=== PATIENT | male | born 1995 | race Caucasian/White ===

== ENCOUNTER 2017-01-21 21:58 | Emergency (ER) | payer MEDICAID, OTHER ==
[~2017-01-21 21:58] MED LIST: ADDE10CA3 OR; MULTIVIT OR; RITA40CA OR
[2017-01-21] MEDS ORDERED: ONDANSETRON 4 MG ORAL DISINTEGRATING TAB (S0181) As Ordered ONE (23:33)
[2017-01-21] MEDS ORDERED: predniSONE 20 MG TAB As Ordered ONE (23:43)
[2017-01-21] MEDS ORDERED: AZITHROMYCIN 250 MG TAB As Ordered ONE (23:43)
--- NOTE | 2017-01-21 23:55 | EDDOCDS ---
Nurse's Notes [facility] Name: Per Brantley Age: 21 yrs Sex: Male : 1995 Arrival Date: 01/21/2017 Time: 21:58 Bed Triage 3 Private MD: Diagnosis: Acute tonsillitis;Nausea and vomiting Presentation: 01/21 22:01 Presenting complaint: Patient states: Nausea/vomiting, shakiness/weakness since this rs3 evening. denies diarrhea/abdominal pain. Adult Sepsis Screening: The patient does not have new or worsening altered mentation. Patient's respiratory rate is less than 22. Systolic blood pressure is greater than 100. Patient has a qSOFA score of 0- Negative Sepsis Screen. Suicide/Homicide risk assessment- the patient denies having any suicidal and/or homicidal ideations and does not present with any other emotional, behavioral or mental health complaints. Status: Patient is not a registered nurse surgical services or dependent. Transition of care: patient was not received from another setting of care. 22:01 Acuity: MATIAS Level 3 rs3 22:01 Method Of Arrival: Walkin/Carried/Asstd rs3 Triage Assessment: 22:04 General: Appears in no apparent distress. Pain: Denies pain. Pt Declines HIV testing. rs3 Historical: - Allergies: no known allergies; - Home Meds: 1. Adderall XR 20 mg Oral cp24 1 cap once daily - PMHx: ADHD; - PSHx: none; - Social history: Smoking status: Patient states was never smoker of tobacco. No barriers to communication noted, The patient speaks fluent Ivorian. - Family history: Not pertinent. - : The pt / caregiver states he / she is not on anticoagulants. Home medication list is obtained from the patient. - Exposure Risk Screening:: None identified. Screenin:51 Screening information is obtained from the patient. Fall risk: No risks identified. js15 Assistance ADL's: requires no assistance with activities of daily living. Abuse/DV Screen: The patient / caregiver reports he/she is: not in a situation that causes fear, pain or injury. Nutritional screening: No deficits noted. Advance Directives: There is no active DNR order. home support is adequate. Assessment: 23:51 General: Appears in no apparent distress, comfortable, Behavior is appropriate for age, js15 cooperative. Pain: Denies pain. Neurological: Level of Consciousness is awake, alert, obeys commands, Oriented to person, place, time. Respiratory: Airway is patent Respiratory effort is even, unlabored, Respiratory pattern is regular, symmetrical. GI: Abdomen is non- distended Abd is soft and non tender X 4 quads. Derm: Skin is normal. Vital Signs: 21:59 BP 162 / 74; Pulse 122; Resp 20; Temp 98.6(O); Pulse Ox 100% ; Weight 54.43 kg (R); lr2 Height 5 ft. 9 in. (175.26 cm) (R); Pain 0/10; 23:51 BP 146 / 86; Pulse 106; Resp 20; Temp 99.2(TE); Pulse Ox 97% on R/A; Pain 0/10; js15 21:59 Body Mass Index 17.72 (54.43 kg, 175.26 cm) lr2 Vitals: 21:59 Log In Time: January 21, 2017 at 21:58. lr2 23:38 Strep Screen is obtained and tested: Negative, a GATSNEG culture is ordered in [place] [address] and sent. ED Course: 21:59 Patient visited by Karen Garza. lr2 21:59 Patient moved to Waiting lr2 22:00 Patient moved to Pre RCE lr2 22:04 Triage Initiated rs3 22:05 Patient moved to Triage 3 rs3 22:44 [facility] Payment Agreement was scanned into [employer] and attached to record. kf3 23:18 [facility] ef1 23:18 Gerson Prince DO is Attending Physician. ef1 23:21 Patient visited by Elen Monteiro PA-C. ef1 23:39 GATS (NEGATIVE STREP SCREEN) Sent. js15 23:43 Harley Alvarenga MD is Referral Physician. ef1 23:51 The patient / caregiver is instructed regarding the plan of care and ED course. js15 23:51 No IV's were initiated during this patient's visit. No procedures done that require js15 assistance. Administered Medications: 23:35 Drug: Ondansetron ODT 4 mg [ondansetron 4 mg disintegrating tablet (1 tabs)] Route: PO; cz 23:47 Drug: predniSONE 60 mg [prednisone 20 mg tablet (3 tabs)] Route: PO; js15 23:47 Drug: azithromycin 500 mg [azithromycin 250 mg tablet (2 tabs)] Route: PO; js15 Order Results: There are currently no results for this order. Outcome: 23:43 Discharge ordered by Provider. ef1 23:51 Discharge Assessment: Patient awake, alert and oriented x 3. No cognitive and/or js15 functional deficits noted. Patient verbalized understanding of disposition instructions. patient administered narcotics - no. The following High Risk Discharge criteria are identified: None. Discharged to home ambulatory, with parent. Condition: stable. Discharge instructions given to patient, Instructed on discharge instructions, follow up and referral plans. medication usage, Demonstrated understanding of instructions, medications, Pt was receptive of discharge instructions/ teaching. Prescriptions given X 4. No special radiology studies were completed. Property sent home with patient. 23:54 Patient left the ED. js15 Signatures: Cory Arredondo, RN RN cz Yony Moon, Reg Reg kf3 Elen Monteiro, PA-C PA-C ef1 America Medel RN RN rs3 Citlaly Stewart RN RN js15 Karen Garza lr2 MTDD
--- NOTE | 2017-01-21 23:55 | EDDOCDS ---
Physician Documentation [facility] Name: Per Brantley Age: 21 yrs Sex: Male : 1995 Arrival Date: 01/21/2017 Time: 21:58 Bed Triage 3 Private MD: Disposition: 01/21/17 23:43 Discharged to Home/Self Care. Impression: Acute tonsillitis, Nausea and vomiting. - Condition is Stable. - Discharge Instructions: Nausea and Vomiting, Tonsillitis, [id number]. - Prescriptions for Ibuprofen 800 mg Oral Tablet - take 1 tablet by ORAL route every 8 hours As needed take with food; 30 tablet. Prednisone 20 mg Oral Tablet - take 3 tablet by ORAL route once daily for 5 days; 15 tablet. Reglan 10 mg Oral Tablet - take 1 tablet by ORAL route every 6 hours take 30 minutes before meals and at bedtime; 20 tablet. Zithromax 250 mg Oral Tablet - take 1 tablet by ORAL route once daily start tomorrow; 4 tablet. - Medication Reconciliation, Local Pharmacy Hours form. - Follow up: Harley Alvarenga; When: 1 - 2 days; Reason: Recheck today's complaints, Continuance of care. Follow up: Emergency Department; Reason: Worsening of conditions. - Problem is new. - Symptoms have improved. Historical: - Allergies: no known allergies; - Home Meds: 1. Adderall XR 20 mg Oral cp24 1 cap once daily - PMHx: ADHD; - PSHx: none; - Social history: Smoking status: Patient states was never smoker of tobacco. No barriers to communication noted, The patient speaks fluent Solomon Islander. - Family history: Not pertinent. - : The pt / caregiver states he / she is not on anticoagulants. Home medication list is obtained from the patient. - Exposure Risk Screening:: None identified. Vital Signs: 01/21 21:59 BP 162 / 74; Pulse 122; Resp 20; Temp 98.6(O); Pulse Ox 100% ; Weight 54.43 kg / 120 lr2 lbs (R); Height 5 ft. 9 in. (175.26 cm) (R); Pain 0/10; 23:51 BP 146 / 86; Pulse 106; Resp 20; Temp 99.2(TE); Pulse Ox 97% on R/A; Pain 0/10; js15 21:59 Body Mass Index 17.72 (54.43 kg, 175.26 cm) lr2 MDM: 22:44 [facility] Payment Agreement was scanned into [employer] and attached to record. kf3 23:31 Strep Screen, Nursing ordered. ef1 23:31 Ondansetron ODT Oral Disintegrating Tablet 4 mg PO once ordered. ef1 23:32 Financial registration complete. hs2 23:38 GATS (NEGATIVE STREP SCREEN) Ordered. EDMS 23:40 predniSONE 60 mg PO once; administer with food or milk ordered. ef1 23:40 azithromycin 500 mg PO once ordered. ef1 Administered Medications: 23:35 Drug: Ondansetron ODT 4 mg [ondansetron 4 mg disintegrating tablet (1 tabs)] Route: PO; cz 23:47 Drug: predniSONE 60 mg [prednisone 20 mg tablet (3 tabs)] Route: PO; js15 23:47 Drug: azithromycin 500 mg [azithromycin 250 mg tablet (2 tabs)] Route: PO; js15 Signatures: Dispatcher [employer] EDMS Yony Moon, Reg Reg kf3 Elen Monteiro, PA-C PA-C ef1 America Medel,RN RN rs3 Citlaly StewartRN RN js15 Patricia Reilly, Reg Reg hs2 Cory Arredondo RN cz The chart was reviewed and I authenticate all verbal orders and agree with the evaluation and treatment provided.Attachments: 22:44 [facility] Payment Agreement kf3 MTDD
--- NOTE | 2017-01-24 00:55 | EDDOCDS ---
Physician Documentation [facility] Name: Per Brantley Age: 21 yrs Sex: Male : 1995 Arrival Date: 01/21/2017 Time: 21:58 Bed Triage 3 Private MD: Disposition: 01/21/17 23:43 Discharged to Home/Self Care. Impression: Acute tonsillitis, Nausea and vomiting. - Condition is Stable. - Discharge Instructions: Nausea and Vomiting, Tonsillitis, [id number]. - Prescriptions for Ibuprofen 800 mg Oral Tablet - take 1 tablet by ORAL route every 8 hours As needed take with food; 30 tablet. Prednisone 20 mg Oral Tablet - take 3 tablet by ORAL route once daily for 5 days; 15 tablet. Reglan 10 mg Oral Tablet - take 1 tablet by ORAL route every 6 hours take 30 minutes before meals and at bedtime; 20 tablet. Zithromax 250 mg Oral Tablet - take 1 tablet by ORAL route once daily start tomorrow; 4 tablet. - Medication Reconciliation, Local Pharmacy Hours form. - Follow up: Harley Alvarenga; When: 1 - 2 days; Reason: Recheck today's complaints, Continuance of care. Follow up: Emergency Department; Reason: Worsening of conditions. - Problem is new. - Symptoms have improved. Historical: - Allergies: no known allergies; - Home Meds: 1. Adderall XR 20 mg Oral cp24 1 cap once daily - PMHx: ADHD; - PSHx: none; - Social history: Smoking status: Patient states was never smoker of tobacco. No barriers to communication noted, The patient speaks fluent Montenegrin. - Family history: Not pertinent. - : The pt / caregiver states he / she is not on anticoagulants. Home medication list is obtained from the patient. - Exposure Risk Screening:: None identified. Vital Signs: 01/21 21:59 BP 162 / 74; Pulse 122; Resp 20; Temp 98.6(O); Pulse Ox 100% ; Weight 54.43 kg / 120 lr2 lbs (R); Height 5 ft. 9 in. (175.26 cm) (R); Pain 0/10; 23:51 BP 146 / 86; Pulse 106; Resp 20; Temp 99.2(TE); Pulse Ox 97% on R/A; Pain 0/10; js15 21:59 Body Mass Index 17.72 (54.43 kg, 175.26 cm) lr2 MDM: 22:44 [facility] [place] was [place] into [employer] and attached to record. kf3 23:31 Strep Screen, Nursing ordered. ef1 23:31 Ondansetron ODT Oral Disintegrating Tablet 4 mg PO once ordered. ef1 23:32 Financial registration complete. hs2 23:38 GATS (NEGATIVE STREP SCREEN) Ordered. EDMS 23:40 predniSONE 60 mg PO once; administer with food or milk ordered. ef1 23:40 azithromycin 500 mg PO once ordered. ef1 01/22 18:09 T-Sheet-- Draft Copy was scanned into [employer] and attached to record. klr Administered Medications: 01/21 23:35 Drug: Ondansetron ODT 4 mg [ondansetron 4 mg disintegrating tablet (1 tabs)] Route: PO; cz 23:47 Drug: predniSONE 60 mg [prednisone 20 mg tablet (3 tabs)] Route: PO; js15 23:47 Drug: azithromycin 500 mg [azithromycin 250 mg tablet (2 tabs)] Route: PO; js15 Signatures: Dispatcher [employer] EDMS Yony Moon, Reg Reg kf3 Elen Monteiro, PA-C PA-C ef1 America MedelRN RN rs3 Citlaly Stewart RN RN js15 Patricia Reilly, Reg Reg hs2 Charo Luther klr Cory Arredondo RN cz The chart was reviewed and I authenticate all verbal orders and agree with the evaluation and treatment provided.Attachments: 22:44 [facility] Payment Agreement kf3 01/22 18:09 T-Sheet-- Draft Copy klr Chart Complete MTDD
--- NOTE | 2017-01-24 00:55 | EDDOCDS ---
Nurse's Notes [facility] Name: Per Brantley Age: 21 yrs Sex: Male : 1995 Arrival Date: 01/21/2017 Time: 21:58 Bed Triage 3 Private MD: Diagnosis: Acute tonsillitis;Nausea and vomiting Presentation: 01/21 22:01 Presenting complaint: Patient states: Nausea/vomiting, shakiness/weakness since this rs3 evening. denies diarrhea/abdominal pain. Adult Sepsis Screening: The patient does not have new or worsening altered mentation. Patient's respiratory rate is less than 22. Systolic blood pressure is greater than 100. Patient has a qSOFA score of 0- Negative Sepsis Screen. Suicide/Homicide risk assessment- the patient denies having any suicidal and/or homicidal ideations and does not present with any other emotional, behavioral or mental health complaints. Status: Patient is not a legal services manager or dependent. Transition of care: patient was not received from another setting of care. 22:01 Acuity: MATIAS Level 3 rs3 22:01 Method Of Arrival: Walkin/Carried/Asstd rs3 Triage Assessment: 22:04 General: Appears in no apparent distress. Pain: Denies pain. Pt Declines HIV testing. rs3 Historical: - Allergies: no known allergies; - Home Meds: 1. Adderall XR 20 mg Oral cp24 1 cap once daily - PMHx: ADHD; - PSHx: none; - Social history: Smoking status: Patient states was never smoker of tobacco. No barriers to communication noted, The patient speaks fluent Mauritanian. - Family history: Not pertinent. - : The pt / caregiver states he / she is not on anticoagulants. Home medication list is obtained from the patient. - Exposure Risk Screening:: None identified. Screenin:51 Screening information is obtained from the patient. Fall risk: No risks identified. js15 Assistance ADL's: requires no assistance with activities of daily living. Abuse/DV Screen: The patient / caregiver reports he/she is: not in a situation that causes fear, pain or injury. Nutritional screening: No deficits noted. Advance Directives: There is no active DNR order. home support is adequate. Assessment: 23:51 General: Appears in no apparent distress, comfortable, Behavior is appropriate for age, js15 cooperative. Pain: Denies pain. Neurological: Level of Consciousness is awake, alert, obeys commands, Oriented to person, place, time. Respiratory: Airway is patent Respiratory effort is even, unlabored, Respiratory pattern is regular, symmetrical. GI: Abdomen is non- distended Abd is soft and non tender X 4 quads. Derm: Skin is normal. Vital Signs: 21:59 BP 162 / 74; Pulse 122; Resp 20; Temp 98.6(O); Pulse Ox 100% ; Weight 54.43 kg (R); lr2 Height 5 ft. 9 in. (175.26 cm) (R); Pain 0/10; 23:51 BP 146 / 86; Pulse 106; Resp 20; Temp 99.2(TE); Pulse Ox 97% on R/A; Pain 0/10; js15 21:59 Body Mass Index 17.72 (54.43 kg, 175.26 cm) lr2 Vitals: 21:59 Log In Time: January 21, 2017 at 21:58. lr2 23:38 Strep Screen is obtained and tested: Negative, a GATSNEG culture is ordered in [place] [address] and sent. ED Course: 21:59 Patient visited by Karen Garza. lr2 21:59 Patient moved to Waiting lr2 22:00 Patient moved to Pre RCE lr2 22:04 Triage Initiated rs3 22:05 Patient moved to Triage 3 rs3 22:44 [facility] Payment Agreement was scanned into [employer] and attached to record. kf3 23:18 [facility] ef1 23:18 Gerson Prince DO is Attending Physician. ef1 23:21 Patient visited by Elen Monteiro PA-C. ef1 23:39 GATS (NEGATIVE STREP SCREEN) Sent. js15 23:43 Harley Alvarenga MD is Referral Physician. ef1 23:51 The patient / caregiver is instructed regarding the plan of care and ED course. js15 23:51 No IV's were initiated during this patient's visit. No procedures done that require [facility] assistance. 01/22 18:09 T-Sheet-- Draft Copy was scanned into [employer] and attached to record. klr Administered Medications: 01/21 23:35 Drug: Ondansetron ODT 4 mg [ondansetron 4 mg disintegrating tablet (1 tabs)] Route: PO; cz 23:47 Drug: predniSONE 60 mg [prednisone 20 mg tablet (3 tabs)] Route: PO; js15 23:47 Drug: azithromycin 500 mg [azithromycin 250 mg tablet (2 tabs)] Route: PO; js15 Order Results: Lab Order: GATS (NEGATIVE STREP SCREEN); SPEC'M 01/21/17 23:39 Test: GATS CULTURE (NEG STREP SCR); Value: GATS RESULT NEGATIVE FOR STREP PYOGENES (GROUP A); Status: F Test: GATS CULTURE (NEG STREP SCR); Value: <EXTERNAL COMMENT eCWMed> FULL REPORT IN LAB NOTES (eCW and Medent).; Status: F Outcome: 23:43 Discharge ordered by Provider. ef1 23:51 Discharge Assessment: Patient awake, alert and oriented x 3. No cognitive and/or js15 functional deficits noted. Patient verbalized understanding of disposition instructions. patient administered narcotics - no. The following High Risk Discharge criteria are identified: None. Discharged to home ambulatory, with parent. Condition: stable. Discharge instructions given to patient, Instructed on discharge instructions, follow up and referral plans. medication usage, Demonstrated understanding of instructions, medications, Pt was receptive of discharge instructions/ teaching. Prescriptions given X 4. No special radiology studies were completed. Property sent home with patient. 23:54 Patient left the ED. js15 Signatures: Cory Arredondo RN RN cz Yony Moon, Reg Reg kf3 Elen Monteiro, PA-C PA-C ef1 America Medel RN RN rs3 Citlaly Stewart RN RN js15 Charo Luther Laura lr2 Chart Complete MTDD
--- NOTE | 2017-01-24 00:55 | EDDOCDS ---
Physician Documentation [facility] Name: Per Brantley Age: 21 yrs Sex: Male : 1995 Arrival Date: 01/21/2017 Time: 21:58 Bed Triage 3 Private MD: Disposition: 01/21/17 23:43 Discharged to Home/Self Care. Impression: Acute tonsillitis, Nausea and vomiting. - Condition is Stable. - Discharge Instructions: Nausea and Vomiting, Tonsillitis, [id number]. - Prescriptions for Ibuprofen 800 mg Oral Tablet - take 1 tablet by ORAL route every 8 hours As needed take with food; 30 tablet. Prednisone 20 mg Oral Tablet - take 3 tablet by ORAL route once daily for 5 days; 15 tablet. Reglan 10 mg Oral Tablet - take 1 tablet by ORAL route every 6 hours take 30 minutes before meals and at bedtime; 20 tablet. Zithromax 250 mg Oral Tablet - take 1 tablet by ORAL route once daily start tomorrow; 4 tablet. - Medication Reconciliation, Local Pharmacy Hours form. - Follow up: Harley Alvarenga; When: 1 - 2 days; Reason: Recheck today's complaints, Continuance of care. Follow up: Emergency Department; Reason: Worsening of conditions. - Problem is new. - Symptoms have improved. Historical: - Allergies: no known allergies; - Home Meds: 1. Adderall XR 20 mg Oral cp24 1 cap once daily - PMHx: ADHD; - PSHx: none; - Social history: Smoking status: Patient states was never smoker of tobacco. No barriers to communication noted, The patient speaks fluent [place] Islander. - Family history: Not pertinent. - : The pt / caregiver states he / she is not on anticoagulants. Home medication list is obtained from the patient. - Exposure Risk Screening:: None identified. Vital Signs: 01/21 21:59 BP 162 / 74; Pulse 122; Resp 20; Temp 98.6(O); Pulse Ox 100% ; Weight 54.43 kg / 120 lr2 lbs (R); Height 5 ft. 9 in. (175.26 cm) (R); Pain 0/10; 23:51 BP 146 / 86; Pulse 106; Resp 20; Temp 99.2(TE); Pulse Ox 97% on R/A; Pain 0/10; js15 21:59 Body Mass Index 17.72 (54.43 kg, 175.26 cm) lr2 MDM: 22:44 [facility] [place] Payment Agreement was scanned into [employer] and attached to record. kf3 23:31 Strep Screen, Nursing ordered. ef1 23:31 Ondansetron ODT Oral Disintegrating Tablet 4 mg PO once ordered. ef1 23:32 Financial registration complete. hs2 23:38 GATS (NEGATIVE STREP SCREEN) Ordered. EDMS 23:40 predniSONE 60 mg PO once; administer with food or milk ordered. ef1 23:40 azithromycin 500 mg PO once ordered. ef1 01/22 18:09 T-Sheet-- Draft Copy was scanned into [employer] and attached to record. klr Administered Medications: 01/21 23:35 Drug: Ondansetron ODT 4 mg [ondansetron 4 mg disintegrating tablet (1 tabs)] Route: PO; cz 23:47 Drug: predniSONE 60 mg [prednisone 20 mg tablet (3 tabs)] Route: PO; js15 23:47 Drug: azithromycin 500 mg [azithromycin 250 mg tablet (2 tabs)] Route: PO; js15 Signatures: Dispatcher [employer] EDMS Yony Moon, Reg Reg kf3 Elen Monteiro, PA-C PA-C ef1 America MedelRN RN rs3 Citlaly Stewart RN RN js15 Patricia Reilly, Reg Reg hs2 Charo Luther klr Cory Arredondo RN cz The chart was reviewed and I authenticate all verbal orders and agree with the evaluation and treatment provided.Attachments: 22:44 [facility] Payment Agreement kf3 01/22 18:09 T-Sheet-- Draft Copy klr Chart Complete MTDD
== END 2017-01-21 23:54 | disposition home or self-care (01) ==
LOC: M ED 21:58
DX: J03.90 Acute tonsillitis, unspecified (principal); R11.2 Nausea with vomiting, unspecified; F90.9 Attention-deficit hyperactivity disorder, unspecified type; Z79.899 Other long term (current) drug therapy

== ENCOUNTER → 2017-04-06 | Outpatient (CLI) | payer OTHER ==
[2017-04-06 15:10] LABS: ALBUMIN 3.9 GM/DL (3.2-5.2); ALKALINE PHOSPHATASE 66 U/L (45-117); ALT/SGPT 26 U/L (12-78); ANION GAP 8 MEQ/L (8-16); AST/SGOT 13 U/L (15-37); BILIRUBIN,TOTAL 0.2 MG/DL (0.2-1.0); BLOOD UREA NITROGEN 11 MG/DL (7-18); CALCIUM LEVEL 8.8 MG/DL (8.5-10.1); CARBON DIOXIDE LEVEL 28 MEQ/L (21-32); CHLORIDE LEVEL 105 MEQ/L (98-107); CREATININE FOR GFR 0.76 MG/DL (0.70-1.30); GLUCOSE, FASTING 89 MG/DL (70-105); POTASSIUM SERUM 4.1 MEQ/L (3.5-5.1); SODIUM LEVEL 141 MEQ/L (136-145); TOTAL PROTEIN 6.9 GM/DL (6.4-8.2)
== END ==
LOC: M LAB 14:06
PROVIDERS: ATTEND Nurse Practitioner Family
DX: F90.9 Attention-deficit hyperactivity disorder, unspecified type (principal)

== ENCOUNTER → 2017-06-10 | Outpatient (REF) | payer OTHER | LOC: M LAB REF 21:58 | PROVIDERS: ATTEND Physician Assistant | DX: J02.9 Acute pharyngitis, unspecified (principal) ==

== ENCOUNTER → 2017-12-17 | Outpatient (REF) | payer OTHER | LOC: M LAB REF 17:12 | DX: J02.9 Acute pharyngitis, unspecified (principal) ==

== ENCOUNTER → 2018-04-17 | Outpatient (REF) | payer OTHER | LOC: M LAB REF 18:04 | DX: J02.9 Acute pharyngitis, unspecified (principal) | CPT/HCPCS: 87070 ==

== ENCOUNTER → 2018-04-19 | Outpatient (CLI) | payer OTHER ==
[2018-04-19 18:27] LABS: ALBUMIN 3.9 GM/DL (3.2-5.2); ALBUMIN/GLOBULIN RATIO 1.03 (1.00-1.93); ALKALINE PHOSPHATASE 103 U/L (45-117); ALT/SGPT 18 U/L (12-78); ANION GAP 7 MEQ/L (8-16); AST/SGOT 15 U/L (7-37); BILIRUBIN,TOTAL 0.2 MG/DL (0.2-1.0); BLOOD UREA NITROGEN 17 MG/DL (7-18); CARBON DIOXIDE LEVEL 29 MEQ/L (21-32); CHLORIDE LEVEL 106 MEQ/L (98-107); CREATININE FOR GFR 0.89 MG/DL (0.70-1.30); GLOMERULAR FILTRATION RATE > 60.0 (>60); GLUCOSE, FASTING 96 MG/DL (70-100); POTASSIUM SERUM 4.6 MEQ/L (3.5-5.1); SODIUM LEVEL 142 MEQ/L (136-145); TOTAL PROTEIN 7.7 GM/DL (6.4-8.2)
[2018-04-19 18:28] LABS: BASO # 0.1 10^3/uL (0.0-0.2); EOS # 0.5 10^3/uL (0.0-0.50); EOS % 4.9 % (0.0-3.0); HEMATOCRIT 40.5 % (42.0-52.0); HEMOGLOBIN 14.1 g/dl (13.5-17.5); IMMATURE GRANULOCYTE % 0.3 % (0-3.0); LYMPH # 2.6 10^3/uL (1.5-6.5); LYMPH % 26.1 % (24.0-44.0); MEAN CORPUSCULAR HEMOGLOBIN 32.5 pg (27.0-33.0); MEAN CORPUSCULAR HGB CONC 34.8 g/dl (32.0-36.5); MEAN CORPUSCULAR VOLUME 93.3 fl (80.0-96.0); MONO # 0.7 10^3/uL (0.0-0.8); MONO % 7.3 % (0.0-5.0); NEUTROPHILS % 60.4 % (36.0-66.0); PLATELET COUNT, AUTOMATED 450 10^3/uL (150-450); RED BLOOD COUNT 4.34 10^6/uL (4.30-6.10); RED CELL DISTRIBUTION WIDTH 12.6 % (11.5-14.5); WHITE BLOOD COUNT 9.9 10^3/uL (4.0-10.0)
[2018-04-19 18:55] LABS: ERYTHROCYTE SEDIMENTATION RATE 20 mm/hr (0-15)
== END ==
LOC: M LAB 16:47
DX: L02.31 Cutaneous abscess of buttock (principal)
CPT/HCPCS: 80053

== ENCOUNTER → 2018-04-19 | Outpatient (REF) | payer OTHER | LOC: M LAB REF 18:00 | DX: L02.31 Cutaneous abscess of buttock (principal) | CPT/HCPCS: 87186 ==

== ENCOUNTER → 2018-07-23 | Outpatient (REF) | payer OTHER | LOC: M LAB REF 21:07 | DX: J02.9 Acute pharyngitis, unspecified (principal) ==

== ENCOUNTER → 2018-08-22 | Outpatient (CLI) | payer OTHER ==
[2018-08-22 15:09] LABS: ALBUMIN 3.8 GM/DL (3.2-5.2); ALBUMIN/GLOBULIN RATIO 1.06 (1.00-1.93); ALKALINE PHOSPHATASE 89 U/L (45-117); ALT/SGPT 19 U/L (12-78); ANION GAP 3 MEQ/L (8-16); AST/SGOT 13 U/L (7-37); BILIRUBIN,TOTAL 0.5 MG/DL (0.2-1.0); BLOOD UREA NITROGEN 15 MG/DL (7-18); CALCIUM LEVEL 8.9 MG/DL (8.5-10.1); CARBON DIOXIDE LEVEL 32 MEQ/L (21-32); CHLORIDE LEVEL 106 MEQ/L (98-107); CREATININE FOR GFR 0.91 MG/DL (0.70-1.30); GLOMERULAR FILTRATION RATE > 60.0 (>60); GLUCOSE, FASTING 79 MG/DL (70-100); POTASSIUM SERUM 5.3 MEQ/L (3.5-5.1); SODIUM LEVEL 141 MEQ/L (136-145); TOTAL PROTEIN 7.4 GM/DL (6.4-8.2)
== END ==
LOC: M LAB 14:20
DX: F90.9 Attention-deficit hyperactivity disorder, unspecified type (principal)
CPT/HCPCS: 80053

== ENCOUNTER → 2019-08-30 | Outpatient (REF) | payer BC ==
[2019-08-30 17:27] LABS: ALT/SGPT 16 U/L (12-78); BILIRUBIN,TOTAL 0.8 MG/DL (0.2-1.0); BLOOD UREA NITROGEN 17 MG/DL (7-18); CALCIUM LEVEL 9.1 MG/DL (8.5-10.1); CARBON DIOXIDE LEVEL 28 MEQ/L (21-32); CHLORIDE LEVEL 106 MEQ/L (98-107); CHOLESTEROL LEVEL 122 MG/DL (<200); CHOLESTEROL RISK RATIO 2.595 (<5); CREATININE FOR GFR 0.91 MG/DL (0.70-1.30); GLOMERULAR FILTRATION RATE > 60.0 (>60); GLUCOSE, FASTING 85 MG/DL (70-100); HDL CHOLESTEROL 47 MG/DL (>40); LDL CHOLESTEROL 61 MG/DL (<100); NON-HDL-C 75 MG/DL; POTASSIUM SERUM 4.3 MEQ/L (3.5-5.1); SODIUM LEVEL 141 MEQ/L (136-145); THYROID STIMULATING HORMONE 0.936 uIU/ML (0.358-3.740); TOTAL PROTEIN 7.6 GM/DL (6.4-8.2); TRIGLYCERIDES LEVEL 72 MG/DL (<150)
[2019-08-30 17:29] LABS: TOTAL 25(OH) VITAMIN D 31.1 NG/ML (30.0-100.0)
[2019-08-30 18:31] LABS: BASO # 0.1 10^3/uL (0.0-0.2); BASO % 1.6 % (0.0-1.0); EOS # 0.4 10^3/uL (0.0-0.5); EOS % 7.1 % (0.0-3.0); HEMATOCRIT 41.2 % (42.0-52.0); HEMOGLOBIN 13.9 g/dl (13.5-17.5); LYMPH # 2.5 10^3/uL (1.5-5.0); LYMPH % 43.3 % (24.0-44.0); MEAN CORPUSCULAR HEMOGLOBIN 31.6 pg (27.0-33.0); MEAN CORPUSCULAR HGB CONC 33.7 g/dl (32.0-36.5); MEAN CORPUSCULAR VOLUME 93.6 fl (80.0-96.0); MONO # 0.4 10^3/uL (0.0-0.8); MONO % 6.5 % (0.0-5.0); NEUTROPHILS # 2.3 10^3/uL (1.5-8.5); NEUTROPHILS % 41.3 % (36.0-66.0); PLATELET COUNT, AUTOMATED 385 10^3/uL (150-450); WHITE BLOOD COUNT 5.7 10^3/uL (4.0-10.0)
== END ==
LOC: M LAB REF 16:38
PROVIDERS: ATTEND Nurse Practitioner Family
DX: Z00.01 Encounter for general adult medical examination with abnormal findings (principal)

== ENCOUNTER 2020-06-14 19:58 | Emergency (ER) | payer BC ==
[~2020-06-14] VITALS: Ht 175.3 cm; Wt 66.7 kg
[~2020-06-14 19:58] MED LIST changes: +ADDE20CA3 PO; +ZOFR8TAB24 PO
[2020-06-14 20:00] VITALS: BP 163/85
[2020-06-14] MEDS ORDERED: TRIA1CR80 (20:09)
[2020-06-14 20:38] LABS: BASO # 0.1 10^3/uL (0.0-0.2); BASO % 0.6 % (0.0-1.0); EOS % 0.2 % (0.0-3.0); HEMATOCRIT 42.7 % (42.0-52.0); HEMOGLOBIN 14.7 g/dl (13.5-17.5); LYMPH # 2.4 10^3/uL (1.5-5.0); LYMPH % 28.2 % (24.0-44.0); MEAN CORPUSCULAR HEMOGLOBIN 31.5 pg (27.0-33.0); MEAN CORPUSCULAR HGB CONC 34.4 g/dl (32.0-36.5); MEAN CORPUSCULAR VOLUME 91.4 fl (80.0-96.0); MONO # 0.5 10^3/uL (0.0-0.8); MONO % 6.4 % (0.0-5.0); NEUTROPHILS # 5.4 10^3/uL (1.5-8.5); NEUTROPHILS % 64.4 % (36.0-66.0); PLATELET COUNT, AUTOMATED 415 10^3/uL (150-450); RED BLOOD COUNT 4.67 10^6/uL (4.30-6.10); WHITE BLOOD COUNT 8.4 10^3/uL (4.0-10.0)
[2020-06-14 21:09] LABS: HEMOGLOBIN A1c 4.9 %
[2020-06-14] MEDS ORDERED: oxyBUTYnin 5 MG TAB PO STA (21:56)
[2020-06-14] MEDS ORDERED: OXYB5TAB10 PO (21:57)
== END 2020-06-14 22:21 | disposition home or self-care (01) ==
LOC: M ED 19:58
DX: R35.8 Other polyuria (principal); F90.9 Attention-deficit hyperactivity disorder, unspecified type

== ENCOUNTER → 2021-05-02 | Outpatient (REF) | payer BC ==
[~2021-05-02] MED LIST changes: +OXYB5TAB10 PO; +TRIA1CR80
== END ==
LOC: M LAB REF 14:20
PROVIDERS: ATTEND Physician Assistant
DX: J02.9 Acute pharyngitis, unspecified (principal)

== ENCOUNTER → 2021-08-21 | Outpatient (CLI) | payer BC ==
[~2021-08-21] MED LIST changes: +E-Z-GAS II EFFERVESCENT PACKET (SODIUM BICARB./CITRIC ACID/SIMETHICONE) As Ordered ONE; +E-Z-HD 98% w/w 340GM SUSP BTL As Ordered ONE; +E-Z-PAQUE 96% w/w SUSP 176GM BTL As Ordered ONE
--- NOTE | 2021-08-21 16:31 | REP ---
INDICATION: REFLUX, NAUSEA, CONI. COMPARISON: None. TECHNIQUE: This procedure was performed under the direct supervision of Dr. Del Angel. Images were reviewed with Dr. Del Angel. Liquid barium and gas producing granules were given in the erect position as well as liquid barium in the prone oblique positions in order to perform a double contrast esophagram examination. A combination of fluoroscopy, spot films and last image hold technology was utilized. 1 minute of fluoro time was utilized for this procedure. FINDINGS: A single view PA chest x-ray is submitted as a staff antisubmarine officer film. The superior mediastinal structures are midline. The heart size is within normal limits. The lungs are clear. The oral and pharyngeal stages of deglutition are unremarkable. Esophageal transport is prompt and efficient and there is no esophagitis, stricture or mucosal ring. There is a sliding-type hiatal hernia.There is gastroesophageal reflux demonstrated to the level of the thoracic is IMPRESSION: There is a sliding-type hiatal hernia. There is gastroesophageal reflux demonstrated to the level of the thoracic inlet. <Electronically signed by Zana Marquez > 08/21/21 1607 <Electronically signed by Nahum Del Angel > 08/21/21 [id number]
== END ==
LOC: M RAD 07:57
PROVIDERS: ATTEND Physician Assistant
DX: K21.9 Gastro-esophageal reflux disease without esophagitis (principal); K92.1 Melena; R10.13 Epigastric pain; R11.0 Nausea; K59.00 Constipation, unspecified; K44.9 Diaphragmatic hernia without obstruction or gangrene

== ENCOUNTER → 2021-10-03 | Outpatient (CLI) | payer BC ==
[~2021-10-03] MED LIST changes: -E-Z-GAS II EFFERVESCENT PACKET (SODIUM BICARB./CITRIC ACID/SIMETHICONE) As Ordered ONE; -E-Z-HD 98% w/w 340GM SUSP BTL As Ordered ONE; -E-Z-PAQUE 96% w/w SUSP 176GM BTL As Ordered ONE; +OMEP1CAP73 PO; +VITATAB26 PO
== END ==
LOC: M LABSMTC 11:34
PROVIDERS: ATTEND Anesthesiology
DX: Z01.818 Encounter for other preprocedural examination (principal); Z11.52 Encounter for screening for COVID-19

== ENCOUNTER → 2021-11-14 | Outpatient (CLI) | payer BC | LOC: M LABSMTC 10:36 | PROVIDERS: ATTEND Anesthesiology | DX: Z11.52 Encounter for screening for COVID-19 (principal); Z20.822 Contact with and (suspected) exposure to COVID-19 ==

== ENCOUNTER 2021-11-19 10:30 | Day surgery (SDC) | payer BC ==
[~2021-11-19] VITALS: Ht 177.8 cm; Wt 73.5 kg
[2021-11-19] MEDS: NS 1,000 ML IV ONE (11:00)
[2021-11-19] MEDS ORDERED: METOPROLOL 5 MG/5 ML VIAL As Ordered ONE (12:03)
[2021-11-19] MEDS ORDERED: propofoL 200 MG/20 ML VIAL As Ordered ONE (12:03)
[2021-11-19] MEDS ORDERED: ESMOLOL INJ 100MG/10ML VIAL As Ordered ONE (12:03)
--- NOTE | 2021-11-19 12:18 | ROOR ---
Patient Name: Per Brantley Procedure Date: 11/19/2021 11:46 AM Date of : 1995 Age: 25 Room: [facility] Gender: Male Note Status: Finalized Procedure: Upper GI endoscopy Indications: Suspected gastro-esophageal reflux disease Providers: DO Latoya Nix MD: RONALDO Dasilva Requesting Provider: Medicines: Propofol per Anesthesia Complications: No immediate complications. Procedure: Pre-Anesthesia Assessment: - Prior to the procedure, a History and Physical was performed, and patient medications and allergies were reviewed. The patient is competent. The risks and benefits of the procedure and the sedation options and risks were discussed with the patient. All questions were answered and informed consent was obtained. Patient identification and proposed procedure were verified by the physician, the nurse, the sterile processing tech and the central sterile technician in the endoscopy suite. Mental Status Examination: alert and oriented. Airway Examination: normal oropharyngeal airway and neck mobility. Respiratory Examination: clear to auscultation. CV Examination: normal. Prophylactic Antibiotics: The patient does not require prophylactic antibiotics. Prior Anticoagulants: The patient has taken no previous anticoagulant or antiplatelet agents. ASA Grade Assessment: II - A patient with mild systemic disease. After reviewing the risks and benefits, the patient was deemed in satisfactory condition to undergo the procedure. The anesthesia plan was to use monitored anesthesia care (MAC). Immediately prior to administration of medications, the patient was re-assessed for adequacy to receive sedatives. The heart rate, respiratory rate, oxygen saturations, blood pressure, adequacy of pulmonary ventilation, and response to care were monitored throughout the procedure. The physical status of the patient was re-assessed after the procedure. The Endoscope was introduced through the mouth, and advanced to the duodenal bulb. The upper GI endoscopy was accomplished without difficulty. The patient tolerated the procedure well. Findings: The Z-line was irregular. Biopsies were taken with a cold forceps for histology. Estimated blood loss was minimal. LA Grade A (one or more mucosal breaks less than 5 mm, not extending between tops of 2 mucosal folds) esophagitis with no bleeding was found. Diffuse mild inflammation characterized by adherent blood, congestion (edema) and erosions was found in the prepyloric region of the stomach. Biopsies were taken with a cold forceps for Helicobacter pylori testing. Estimated blood loss was minimal. Impression: - Z-line irregular. Biopsied. - LA Grade A esophagitis. - Gastritis. Biopsied. Recommendation: - Patient has a contact number available for emergencies. The signs and symptoms of potential delayed complications were discussed with the patient. Return to normal activities tomorrow. Written discharge instructions were provided to the patient. - Await pathology results. - Return to physician assistant produce manager at appointment to be scheduled. Procedure Code(s): --- Professional --- 73613, Esophagogastroduodenoscopy, flexible, transoral; with biopsy, single or multiple Diagnosis Code(s): --- Professional --- K22.8, Other specified diseases of esophagus K20.9, Esophagitis, unspecified K29.70, Gastritis, unspecified, without bleeding CPT copyright 2019 [employer]. All rights reserved. The codes documented in this report are preliminary and upon assurance engineer review may be revised to meet current compliance requirements. Dillon Maldonado DO 11/19/2021 12:18:29 PM Electronically signed by Dillon Maldonado DO Number of Addenda: 0 Note Initiated On: 11/19/2021 11:46 AM Estimated Blood Loss: Estimated blood loss was minimal.
[2021-11-19] MEDS ORDERED: LIDOCAINE 2% 100MG/5ML SDV (FOR ANES.) As Ordered ONE (12:19)
--- NOTE | 2021-11-19 12:20 | ROOR ---
Patient Name: Per Brantley Procedure Date: 11/19/2021 11:47 AM Date of : 1995 Age: 25 Room: [facility] Gender: Male Note Status: Finalized Procedure: Colonoscopy Indications: Hematochezia Providers: DO Latoya Nix MD: RONALDO Dasilva Requesting Provider: Medicines: Propofol per Anesthesia Complications: No immediate complications. Procedure: Pre-Anesthesia Assessment: - Prior to the procedure, a History and Physical was performed, and patient medications and allergies were reviewed. The patient is competent. The risks and benefits of the procedure and the sedation options and risks were discussed with the patient. All questions were answered and informed consent was obtained. Patient identification and proposed procedure were verified by the physician, the nurse, the lawn care worker and the aircraft systems technician in the endoscopy suite. Mental Status Examination: alert and oriented. Airway Examination: normal oropharyngeal airway and neck mobility. Respiratory Examination: clear to auscultation. CV Examination: normal. Prophylactic Antibiotics: The patient does not require prophylactic antibiotics. Prior Anticoagulants: The patient has taken no previous anticoagulant or antiplatelet agents. ASA Grade Assessment: II - A patient with mild systemic disease. After reviewing the risks and benefits, the patient was deemed in satisfactory condition to undergo the procedure. The anesthesia plan was to use monitored anesthesia care (MAC). Immediately prior to administration of medications, the patient was re-assessed for adequacy to receive sedatives. The heart rate, respiratory rate, oxygen saturations, blood pressure, adequacy of pulmonary ventilation, and response to care were monitored throughout the procedure. The physical status of the patient was re-assessed after the procedure. The Colonoscope was introduced through the anus and advanced to the cecum, identified by appendiceal orifice and ileocecal valve. The colonoscopy was performed without difficulty. The patient tolerated the procedure well. Findings: Non-bleeding internal hemorrhoids were found during retroflexion. The hemorrhoids were Grade I (internal hemorrhoids that do not prolapse). Impression: - Non-bleeding internal hemorrhoids. - No specimens collected. Recommendation: - Patient has a contact number available for emergencies. The signs and symptoms of potential delayed complications were discussed with the patient. Return to normal activities tomorrow. Written discharge instructions were provided to the patient. - Repeat colonoscopy at age 51 for screening purposes. - Return to my office PRN. Procedure Code(s): --- Professional --- 21692, Colonoscopy, flexible; diagnostic, including collection of specimen(s) by brushing or washing, when performed (separate procedure) Diagnosis Code(s): --- Professional --- K64.0, First degree hemorrhoids K92.1, Melena (includes Hematochezia) CPT copyright 2019 [employer]. All rights reserved. The codes documented in this report are preliminary and upon teacher adult education review may be revised to meet current compliance requirements. Dillon Maldonado DO 11/19/2021 12:20:02 PM Electronically signed by Dillon Maldonado DO Number of Addenda: 0 Note Initiated On: 11/19/2021 11:47 AM Estimated Blood Loss: Estimated blood loss: none.
[2021-11-19 12:42] VITALS: BP 156/87
== END 2021-11-19 12:47 | disposition home or self-care (01) ==
LOC: M OPP 10:30
PROVIDERS: ATTEND Surgery
DX: K92.1 Melena (principal); K64.0 First degree hemorrhoids; K22.89 Other specified disease of esophagus; K20.90 Esophagitis, unspecified without bleeding; K29.70 Gastritis, unspecified, without bleeding; Z79.899 Other long term (current) drug therapy

== ENCOUNTER → 2022-12-10 | Outpatient (REF) | payer OTHER ==
[2022-12-12 10:08] LABS: CREATININE, URINE 138.9 mg/dL (20.0-300.0)
== END ==
LOC: M LAB REF 16:14
PROVIDERS: ATTEND Physician Assistant
DX: Z79.899 Other long term (current) drug therapy (principal)

== ENCOUNTER → 2023-06-16 | Outpatient (CLI) | payer OTHER | LOC: M RAD 17:36 | PROVIDERS: ATTEND Physician Assistant | DX: R31.9 Hematuria, unspecified (principal) ==

== ENCOUNTER → 2023-06-16 | Outpatient (REF) | payer OTHER ==
[2023-06-16 21:36] LABS: APPEARANCE, URINE HAZY (CLEAR); BACTERIA, URINE AUTO NEGATIVE (NEGATIVE); BILIRUBIN, URINE AUTO NEGATIVE (NEGATIVE); BLOOD, URINE BLOOD 3+ (NEGATIVE); CALCIUM OXALATE CRYSTALS LARGE; COLOR, URINE YELLOW (YELLOW); GLUCOSE, URINE (UA) AUTO NEGATIVE (NEGATIVE); KETONE, URINE AUTO NEGATIVE (NEGATIVE); LEUKOCYTE ESTERASE, URINE AUTO NEGATIVE (NEGATIVE); MUCUS, URINE SMALL (NEGATIVE); NITRITE, URINE AUTO NEGATIVE (NEGATIVE); PROTEIN, URINE AUTO 1+ mg/dL (NEGATIVE); RBC, URINE AUTO TNTC /HPF (0-3); SPECIFIC GRAVITY URINE AUTO 1.026 (1.002-1.035); SQUAMOUS EPITHELIAL CELL UR AU 0 /HPF (0-6); UROBILINOGEN, URINE AUTO 0.2 mg/dL (0.0-2.0); WBC, URINE AUTO 0 /HPF (0-3)
== END ==
LOC: M LAB REF 21:01
PROVIDERS: ATTEND Physician Assistant
DX: N20.0 Calculus of kidney (principal)

== ENCOUNTER 2023-09-06 18:06 | Emergency (ER) | payer MEDICAID, OTHER ==
[~2023-09-06] VITALS: Ht 167.6 cm; Wt 77.6 kg
[2023-09-06 21:31] VITALS: BP 130/63; TEMP 98.6; O2SAT 99
[2023-09-06] MEDS ORDERED: DOXY-443 PO (22:42)
[2023-09-06] MEDS ORDERED: IBUP80TA PO (22:42)
[2023-09-06] MEDS ORDERED: DOXYCYCLINE HYCLATE 100MG TABLET PO ONE (22:45)
== END 2023-09-06 22:49 | disposition home or self-care (01) ==
LOC: M ED 18:06
DX: L02.416 Cutaneous abscess of left lower limb (principal); I10 Essential (primary) hypertension; F90.9 Attention-deficit hyperactivity disorder, unspecified type; L40.9 Psoriasis, unspecified; Z79.899 Other long term (current) drug therapy

== ENCOUNTER → 2023-11-01 | Outpatient (REF) | payer MEDICAID ==
[~2023-11-01] MED LIST changes: +DOXY-443 PO; +IBUP80TA PO; -OXYB5TAB10 PO; +OXYB5TAB11 PO
== END ==
LOC: M LAB REF 21:33
PROVIDERS: ATTEND Physician Assistant
DX: J02.9 Acute pharyngitis, unspecified (principal)

== ENCOUNTER → 2023-12-18 | Outpatient (REF) | payer OTHER | LOC: M LAB REF 17:22 | PROVIDERS: ATTEND Physician Assistant Medical | DX: R05.9 Cough, unspecified (principal) ==

== ENCOUNTER → 2024-09-19 | Outpatient (CLI) | payer OTHER ==
[~2024-09-19] MED LIST changes: +DOXY-441 PO; -DOXY-443 PO; -OXYB5TAB11 PO; +OXYB5TAB14 PO
== END ==
LOC: M RAD 15:24
PROVIDERS: ATTEND Family Medicine
DX: R05.9 Cough, unspecified (principal)

== ENCOUNTER 2024-09-24 19:01 | Emergency (ER) | payer OTHER ==
[~2024-09-24] VITALS: Ht 167.6 cm; Wt 80.2 kg
[2024-09-24 19:03] VITALS: TEMP 97.4
[2024-09-24] MEDS ORDERED: ONDANSETRON 4MG 2ML VIAL As Ordered ONE (19:15)
[2024-09-24] MEDS ORDERED: KETOROLAC 30 MG/ML 1ML VIAL As Ordered ONE (19:22)
[2024-09-24] MEDS: KETOROLAC 30 MG/ML 1ML VIAL IV ONE (19:24)
[2024-09-24] MEDS: ONDANSETRON 4MG 2ML VIAL IV ONE (19:24)
[2024-09-24 19:31] LABS: BASO # 0.1 10^3/uL (0.0-0.2); BASO % 1.1 % (0.0-1.0); EOS # 0.2 10^3/uL (0.0-0.5); EOS % 1.2 % (0.0-3.0); HEMATOCRIT 40.8 % (42.0-52.0); LYMPH % 32.4 % (24.0-44.0); MEAN CORPUSCULAR HEMOGLOBIN 30.4 pg (27.0-33.0); MEAN CORPUSCULAR HGB CONC 34.3 g/dl (32.0-36.5); MEAN CORPUSCULAR VOLUME 88.7 fl (80.0-96.0); MONO # 0.8 10^3/uL (0.0-0.8); MONO % 6.2 % (2.0-8.0); NEUTROPHILS # 7.3 10^3/uL (1.5-8.5); NEUTROPHILS % 58.9 % (36.0-66.0); PLATELET COUNT, AUTOMATED 567 10^3/uL (150-450); WHITE BLOOD COUNT 12.4 10^3/uL (4.0-10.0)
[2024-09-24 20:06] LABS: LIPASE 58 U/L (12-53)
[2024-09-24 20:09] LABS: ALBUMIN 4.1 G/DL (3.2-5.2); ALKALINE PHOSPHATASE 98 U/L (40-129); ALT/SGPT 27 U/L (7.0-40); AST/SGOT 13 U/L (<34); BILIRUBIN,DIRECT < 0.1 MG/DL (<0.4); BILIRUBIN,TOTAL 0.2 MG/DL (0.3-1.2); BLOOD UREA NITROGEN 11 MG/DL (9-23); CALCIUM LEVEL 9.7 MG/DL (8.5-10.1); CARBON DIOXIDE LEVEL 26 MMOL/L (20-31); CHLORIDE LEVEL 107 MMOL/L (98-107); CREATININE FOR GFR 0.95 MG/DL (0.70-1.30); GLOMERULAR FILTRATION RATE > 60.0 (>60); GLUCOSE, FASTING 112 MG/DL (60-100); POTASSIUM SERUM 4.1 MMOL/L (3.5-5.1); SODIUM LEVEL 141 MMOL/L (136-145); TOTAL PROTEIN 7.7 G/DL (5.7-8.2)
[2024-09-24 21:30] VITALS: BP 130/108; O2SAT 100
[2024-09-24] MEDS ORDERED: CEFD1CAP9 PO (21:33)
[2024-09-24] MEDS ORDERED: FLOM0.4C39 PO (21:33)
[2024-09-24] MEDS ORDERED: PERC5TAB12 PO (21:33)
[2024-09-24] MEDS ORDERED: ONDA-282 PO (21:33)
[2024-09-24] MEDS ORDERED: KETO10TAB PO (21:33)
[2024-09-24] MEDS: MORPHINE 4 MG/ML 1ML VIAL IV PRN (21:37)
[2024-09-24] MEDS: KETOROLAC TROMETHAMINE 10 MG TAB PO ONE (21:45)
[2024-09-24] MEDS: TAMSULOSIN 0.4 MG CAP PO ONE (21:45)
[2024-09-24] MEDS: CEFDINIR 300 MG CAP (OMNICEF) PO ONE (21:45)
== END 2024-09-24 21:46 | disposition home or self-care (01) ==
LOC: M ED 19:01
DX: N39.0 Urinary tract infection, site not specified (principal); N20.1 Calculus of ureter; I10 Essential (primary) hypertension; F90.9 Attention-deficit hyperactivity disorder, unspecified type; Z79.2 Long term (current) use of antibiotics; Z79.1 Long term (current) use of non-steroidal anti-inflammatories (NSAID); Z79.899 Other long term (current) drug therapy
CPT/HCPCS: 74176; 80048; 80076; 81000; 81015; 83690; 85025; 87086; 93041; 96374; 99284; J1885; J2405

== ENCOUNTER → 2025-01-27 | Outpatient (CLI) | payer OTHER ==
[~2025-01-27] MED LIST changes: +CEFD1CAP9 PO; +FLOM0.4C39 PO; +KETO10TAB PO; +ONDA-282 PO; +PERC5TAB12 PO
[2025-01-27 09:43] LABS: BASO # 0.1 10^3/uL (0.0-0.2); BASO % 1.5 % (0.0-1.0); EOS # 0.2 10^3/uL (0.0-0.5); EOS % 3.4 % (0.0-3.0); HEMATOCRIT 38.4 % (42.0-52.0); HEMOGLOBIN 12.4 g/dl (13.5-17.5); LYMPH # 2.3 10^3/uL (1.5-5.0); LYMPH % 43.4 % (24.0-44.0); MEAN CORPUSCULAR HEMOGLOBIN 28.4 pg (27.0-33.0); MEAN CORPUSCULAR HGB CONC 32.3 g/dl (32.0-36.5); MEAN CORPUSCULAR VOLUME 88.1 fl (80.0-96.0); MONO # 0.5 10^3/uL (0.0-0.8); NEUTROPHILS # 2.3 10^3/uL (1.5-8.5); NEUTROPHILS % 42.5 % (36.0-66.0); PLATELET COUNT, AUTOMATED 499 10^3/uL (150-450); RED BLOOD COUNT 4.36 10^6/uL (4.30-6.10); WHITE BLOOD COUNT 5.4 10^3/uL (4.0-10.0)
[2025-01-27 10:08] LABS: ALBUMIN 3.5 G/DL (3.2-5.2); ALKALINE PHOSPHATASE 81 U/L (40-129); ALT/SGPT 27 U/L (7.0-40); AST/SGOT 19 U/L (<34); BILIRUBIN,TOTAL 0.6 MG/DL (0.3-1.2); BLOOD UREA NITROGEN 12 MG/DL (9-23); CALCIUM LEVEL 8.8 MG/DL (8.5-10.1); CARBON DIOXIDE LEVEL 28 MMOL/L (20-31); CHLORIDE LEVEL 104 MMOL/L (98-107); CHOLESTEROL LEVEL 119 MG/DL (<200); CHOLESTEROL RISK RATIO 3.27 (<5); CREATININE FOR GFR 0.92 MG/DL (0.70-1.30); GLOMERULAR FILTRATION RATE > 60.0 (>60); GLUCOSE, FASTING 94 MG/DL (60-100); HDL CHOLESTEROL 36.3 MG/DL (>40); LDL CHOLESTEROL 63.1 MG/DL (<100); NON-HDL-C 82.7 MG/DL; POTASSIUM SERUM 4.7 MMOL/L (3.5-5.1); SODIUM LEVEL 140 MMOL/L (136-145); TOTAL PROTEIN 6.9 G/DL (5.7-8.2); TRIGLYCERIDES LEVEL 98 MG/DL (<150)
[2025-01-27 10:09] LABS: TOTAL 25(OH) VITAMIN D 16.2 NG/ML (20.0-100.0)
== END ==
LOC: M LAB 08:31
PROVIDERS: ATTEND Registered Nurse
DX: I10 Essential (primary) hypertension (principal); E55.9 Vitamin D deficiency, unspecified

== ENCOUNTER → 2025-04-06 | Outpatient (CLI) | payer OTHER ==
[~2025-04-06] MED LIST changes: -FLOM0.4C39 PO; +TAMS-18 PO
== END ==
LOC: M RAD 08:06
PROVIDERS: ATTEND Nurse Practitioner Family
DX: J15.9 Unspecified bacterial pneumonia (principal)

== ENCOUNTER 2025-11-01 14:50 | Emergency (ER) | payer BC, OTHER ==
[~2025-11-01] VITALS: Ht 177.8 cm; Wt 91.5 kg
[~2025-11-01 14:50] MED LIST changes: +SYMB16INH INH
[2025-11-01 15:57] LABS: BASO # 0.1 10^3/uL (0.0-0.2); BASO % 0.7 % (0.0-1.0); EOS # 0.0 10^3/uL (0.0-0.5); EOS % 0.3 % (0.0-3.0); LYMPH # 2.0 10^3/uL (1.5-5.0); LYMPH % 14.1 % (24.0-44.0); MONO # 0.7 10^3/uL (0.0-0.8); MONO % 5.1 % (2.0-8.0); NEUTROPHILS # 11.1 10^3/uL (1.5-8.5); NEUTROPHILS % 79.5 % (36.0-66.0); PLATELET COUNT, AUTOMATED 567 10^3/uL (150-450)
[2025-11-01 16:00] LABS: KETONE, URINE AUTO RFX NEGATIVE (NEGATIVE); LEUKOCYTE ESTERASE UR AUTO RFX NEGATIVE (NEGATIVE); NITRITE, URINE AUTO RFX NEGATIVE (NEGATIVE); RBC, URINE AUTO RFX 1 /HPF (0-3); SQUAM EPITHELIAL CELL UR AURFX 0 /HPF (0-6); WBC, URINE AUTO RFX 0 /HPF (0-3)
[2025-11-01 16:28] LABS: ALT/SGPT 23 U/L (7.0-40); AST/SGOT 19 U/L (<34); CALCIUM LEVEL 9.0 MG/DL (8.5-10.1); CARBON DIOXIDE LEVEL 26 MMOL/L (20-31); CHLORIDE LEVEL 105 MMOL/L (98-107); CREATININE FOR GFR 0.94 MG/DL (0.70-1.30); GLOMERULAR FILTRATION RATE > 90.0 (>60); POTASSIUM SERUM 4.5 MMOL/L (3.5-5.1); SODIUM LEVEL 141 MMOL/L (136-145)
[2025-11-01] MEDS ORDERED: ISOVUE-370 76% 100 ML VIAL As Ordered ONE (16:56)
[2025-11-01] MEDS: NS (Normal Saline) 0.9% 1,000 ML IV ONE (17:09)
[2025-11-01] MEDS: ONDANSETRON 4MG/2ML VIAL IV ONE (17:09)
[2025-11-01] MEDS: KETOROLAC 30 MG/ML 1 ML VIAL IV ONE (17:09)
[2025-11-01] MEDS ORDERED: ONDA-282 PO (19:19)
[2025-11-01] MEDS ORDERED: IBUP600T42 PO (19:19)
[2025-11-01 19:29] VITALS: BP 129/61; TEMP 98.6; O2SAT 98
== END 2025-11-01 19:44 | disposition home or self-care (01) ==
LOC: M ED 14:50
DX: R10.9 Unspecified abdominal pain (principal); N20.0 Calculus of kidney; Z79.2 Long term (current) use of antibiotics; Z79.1 Long term (current) use of non-steroidal anti-inflammatories (NSAID); Z79.899 Other long term (current) drug therapy
CPT/HCPCS: 71045; 74177; 80048; 80076; 81001; 83690; 85025; 87486; 87581; 87633; 87798; 96361; 96374; 99284; J1885; J2405; Q9967